=== PATIENT | male | born 1955 | race Caucasian/White ===

== ENCOUNTER 2017-07-11 11:27 | Inpatient (IN) | payer OTHER ==
[2017-07-11] VITALS (11 sets, daily range): BP systolic 107–146; BP diastolic 59–90; PULSE 49–98; RESP 9–18; O2SAT 97–100
[~2017-07-11] VITALS: Ht 175.3 cm; Wt 95.8 kg
[2017-07-11] MEDS: Lactated Ringer's 1,000 ML IV SCH ×3 (05:00→13:43)
[~2017-07-11 11:27] MED LIST: ADAL40PE3 SQ; ASPI-973 PO; BETA60OI3 TP; Bupivacaine Liposome 1.3% 20 mL Inj INFILTRATE ONE; CeFAZolin Inj 2 GM in IV Premix 1 EACH IV ONE; RANI150C4 PO; VITA200C21 PO; vitamin d2
[2017-07-11] MEDS ORDERED: CeFAZolin 2 Gm/50 mL D5W Duplex Bag IV ONE (11:42)
[2017-07-11] MEDS ORDERED: PSYL660P17 PO (12:13)
[2017-07-11] MEDS: Vancomycin Inj 1,500 MG in 0.9% Sodium Chloride 500 ML IV SCH ×3 (12:37→12:50)
[2017-07-11] MEDS ORDERED: fentaNYL-PF 50 mCg/mL 2 mL Inj IVPUSH PRN (13:25)
[2017-07-11] MEDS ORDERED: Lactated Ringer's 500 ML IV PRN (13:25)
[2017-07-11] MEDS ORDERED: Ondansetron 2 mg/mL 2 mL Inj IVPUSH PRN ×2 (13:25→15:45)
[2017-07-11] MEDS ORDERED: Lactated Ringer's 1,000 ML IV SCH (13:25)
[2017-07-11] MEDS ORDERED: MetoCLOpramide 5 mg/mL 2 mL Inj IVPUSH PRN (13:25)
[2017-07-11] MEDS ORDERED: HYDROmorphone 1 mg/mL Inj IVPUSH PRN ×2 (13:25→15:45)
[2017-07-11] MEDS ORDERED: EPHEDrine Sulfate 50 mg/mL Inj IVPUSH PRN (13:25)
[2017-07-11] MEDS ORDERED: Phenylephrine 10,000 mCg/mL Inj IVPUSH PRN (13:25)
[2017-07-11] MEDS ORDERED: Dexamethasone 4 mg/mL Inj IVPUSH PRN (13:25)
--- NOTE | 2017-07-11 13:28 | PCM.HPANE ---
Patient Data Date of Service: Jul 11, 2017 Surgeon Admitting Provider: Attending Provider:Kvng Rice DO Primary Care Physician:Latanya Other Provider:Boom Holly Anesthesia Reason for Visit Right Hip Osteoarthritis Ht/WT & BMI Height (Feet): 5 Height (Inches): 9 Weight (Kilograms): 95.8 Body Mass Index 31.00 Allergies Coded Allergies: etanercept (Verified Allergy, Unknown, reddness legs, 07/11/17) Past Anesthesia History Anesthesia History: Denies:: Abnormal Airway, Anesthesia Reactions, Difficult Intubation, Fam Anesthesia Reaction, Fam Malignant Hypertherm, Malignant Hyperthermia Diabetes History Hx Diabetes?: No MRSA MRSA: No Medications Blood Thinner: Aspirin Hypertension Medication: No Home Meds Incl Beta Ever: No Reported Medications Psyllium Husk (Metamucil)3.4 Gram/5.4 Gram [id number] Gm PO DAILY CONSTIPATION 07/11/17 Calcipotriene/Betamethasone (Taclonex Ointment)60 Gm Oint...g.60 Gm TP PRN skin irritation 06/30/17 Vitamin E Acetate (Vitamin E)200 Unit [id number] Unit PO DAILY 06/30/17 Ranitidine 150 Mg [id number] Mg PO DAILY PRN For Indigestion Ref 0 06/30/17 [vitamin d2] No Conflict Check50,000 Units WEEKLY 06/30/17 Aspirin 81 Mg Hblyvy05 Mg PO DAILY Ref 0 06/30/17 Adalimumab (Humira Psoriasis)40 Mg/0.8 Ml Pen.ij.kit40 Mg SQ a6sfaew 06/30/17 History History of ENT Problems?: No HEENT History: Positive for:: Hearing Problem Denies:: Abnormal Airway Cataracts Difficult Intubation Dysphagia Glaucoma Sinus Problem TMJ Denture Type: None Teeth Condition: Within Normal Limits Hx of Heart Problems?: No Cardiovascular History: Denies:: AICD Abdominal Aortic Aneurism Atrial Fibrillation Edema Heart Murmur Hypertension Irregular Heartbeat Pacemaker Peripheral Vascular Hx of Respiratory Problem?: Yes Respiratory History: Positive for:: Use of C-PAP Machine Denies:: Asthma COPD Emphysema Oxygen Administration Pneumonia Tuberculosis Use of Inhalers / NEBS Hx Neurologic Problems?: No Neurological History: Denies:: CVA Headaches Multiple Sclerosis Parkinson's Disease Seizures TIA Hx of GI Problems?: Yes Hx of Problems?: No Genitourinary History: Denies:: Kidney Stones Urinary Tract Infection Male Hx: Positive for:: Prostate Problems (BPH) Skin History: Positive for:: History Skin Disorders? (psoriasis) Denies:: Pressure Ulcers Hx Musculoskeletal Problems?: Yes Musculoskeletal History: Positive for:: Degenerative Joint Musculoskeletal Trauma (right hip current admission problem) Osteoarthritis (psoriatric arthritis) Denies:: Back Injury Fibromyalgia Joint Replacement Myasthenia Gravis Systemic Lupus Hx of Psycho/Social Problems?: No Psycho Social History: Denies:: Anxiety Hx Depression Hx Surgeries?: Yes (appe, karla, rt testicle) Hx Any Other Health Problems?: Yes Other History: Positive for:: Cancer (melanoma right lower leg x 2 surgeries- being monitored) Denies:: Thyroid Disease History Blood Transfusions: Positive for:: Accept Blood Products? Denies:: Blood Transfusions Hx Diabetes: No Hx Alcohol Use: YesAlcoholic Drinks Per Day: infrequently- holidaysHx Substance Use: NoHave You Smoked inLast 12 mo: No Stop/Bang Treated for Sleep Apnea?: Yes Do You Have a CPAP Machine?: Yes P-Blood Pressure: treated: No B- Body Mass Index > 35 kg/m2: No A- Age over 50: Yes N- Neck Large Circumference: No G- Gender Male: Yes FLORES Category 1: Yes Risk Assessment Category Category 1A: Patient has history of documented sleep apnea, and HAS NOT received any narcotic, sedative or anesthesia administration during this stay. Category 1B: Patient has history of documented sleep apnea, and HAS received any narcotic , sedative or anesthesia administration during this stay Category 2: Patient has SUSPECTED Obstructive Sleep Apnea, and HAS received any narcotic , sedative or anesthesia administration during this stay. Category 3: Patient has SUSPECTED Obstructive Sleep Apnea and HAS NOT received narcotic, sedative or anesthesia administration during this stay. Category 4: Outpatient in Procedural Areas with known sleep apnea or who screen positive for High Risk via the STOP/BANG questionnaire. Exam Exam Vital Signs Vital Signs Date Time Temp Pulse Resp B/P Pulse Ox O2 Delivery O2 Flow Rate FiO2 07/11/17 12:00 CPAP/BIPAP 07/11/17 11:47 36.2 58 15 131/66 99 Room Air General Appearance: Alert, Oriented X3, Cooperative HEENT/AIRWAY: MP 1 (full martin) Lungs: Clear to Auscultation Heart: Exam Unremarkable Meds/Labs/Diagnostics Admission Meds Current Medications Lactated Ringer's 1,000 ml @ 120 mls/hr Q8H20M IV Last administered on t 11:44; Start 07/11/17 at 05:00; Stop 07/11/17 at 13:19; Status DC Vancomycin HCl/ Sodium Chloride (Vancocin Inj/ Normal Saline) 500 ml @ 333.333 mls/hr PREOP IV Last administered on 07/11/17t 12:50; Start 07/11/17 at 12:37; Stop 07/11/17 at 18:00 Plan Impression Patient chart reviewed, patient interviewed and anesthestic plan with risks, benefits, and alternatives discussed, and informed consent obtained. NPO per Anesth. Guidelines: Yes ASA Physical Status: ASA2 Mod Systemic Disease Anesthetic Plan: SAB Bene/Risks/Altern/Consents: Yes HP Complete Prior to Induction: Yes Ruben Lozano MD Jul 11, 2017 13:28
[2017-07-11] MEDS ORDERED: 0.9% Sodium Chloride 100 ML ONE (13:30)
[2017-07-11] MEDS ORDERED: Tranexamic Acid 100 mg/mL 10 mL Inj ONE (13:30)
[2017-07-11] MEDS ORDERED: Bupivacaine Liposome 1.3% 20 mL Inj ONE (13:31)
[2017-07-11] MEDS ORDERED: 0.9% Sodium Chloride 10 mL Inj INFILTRATE ONE (14:30)
[2017-07-11] MEDS ORDERED: Bupivacaine-MPF 0.25%/EPI 30 mL Inj INFILTRATE ONE (14:30)
[2017-07-11] MEDS ORDERED: diphenhydrAMINE 25 mg Capsule PO PRN (15:45)
[2017-07-11] MEDS ORDERED: Polyethylene Glycol (PEG) 17 Gm Powder PO PRN (15:45)
[2017-07-11] MEDS ORDERED: Acetaminophen IV 1,000 MG in IV Premix 1 EACH IV ONE (15:45)
[2017-07-11] MEDS ORDERED: Magnesium Hydroxide 10 mL Oral Concentration PO PRN (15:45)
--- NOTE | 2017-07-11 16:35 | NUR ---
Arrived on Unit Patient arrived on floor from PACU on bed in stable condition. VSS. Dressing CDI. Denies pain and nausea at this time. Patient orientated to call light, bed, how to order food, and the plan for PT to work with the patient tomorrow morning. at bedside. Call light and tray table within reach. Will continue to monitor patient hourly.
--- NOTE | 2017-07-11 16:56 | DRSVH ---
PROCEDURE: X-RAY PELVIS W/LAT HIP (RT) ([id number]) INDICATIONS: post op TECHNIQUE: AP pelvis and lateral view of the right hip acquired. COMPARISON: [facility], , XR PELVIS W BILATERAL HIPS 5VW, 03/29/2017, 14:00. FINDINGS: Bones: Patient is status post right hip arthroplasty, with hardware components in expected positions . The hip joint appears congruent. The visualized bony structures appear intact. Soft tissues: Overlying postoperative changes are noted. No suspicious soft tissue densities. IMPRESSION: Normal postoperative examination. Dictated by: Fredi Verdin M.D. on 07/11/2017 at 16:53 Approved by: Fredi Verdin M.D. on 07/11/2017 at 16:53
--- NOTE | 2017-07-11 17:00 | OP ---
[address] [address] OPERATIVE REPORT PATIENT: MIMI STOVER : 1955 MR#: [id number] ADMIT: 07/11/2017 JOB ID: [id number] DATE OF SURGERY: 07/11/2017 PREOPERATIVE DIAGNOSIS(ES): Right hip degenerative joint disease. POSTOPERATIVE DIAGNOSIS(ES): Right hip degenerative joint disease. PROCEDURE: Right total hip arthroplasty. SURGEON: Kvng Rice MD PLASTIC EXTRUDING MACHINE OPERATOR: Caitie Lujan PA-C ANESTHESIA: Spinal. INDICATIONS: The patient is a 62-year-old male with right hip severe degenerative arthritis secondary to psoriatic arthritis who had failed conservative measures and wished to proceed with a total hip arthroplasty. We discussed the risks, benefits, and possible complications of surgery including, but not limited to, injury to nerves and vessels, infection, bleeding, incomplete relief of symptoms, stiffness, need for additional procedures, dislocation, and blood clots. The patient had good understanding. All questions were answered and he wished to proceed. A surgical first assistant was required for the successful completion of the procedure. PROCEDURE IN DETAIL: The patient is brought to the operating room. He was given a preoperative antibiotic and 1 g TXA preoperatively. He was placed into the lateral decubitus position. The right hip was sterilely prepped and draped. An incision was made centered over the greater trochanter in line with the femur. Dissection was carefully carried through the subcutaneous tissue. Electrocautery was used for hemostasis. A split was made in the iliotibial band in line with the skin incision and the Charnley retractor was then placed. A split was then made in the gluteus medius between the junction of the anterior 1/3 and the posterior 2/3, and Hohmann retractors were placed on either side of the femoral neck. An anterior sleeve of tissue was released off of the trochanter, leaving a cuff of tissue for repair. This was taken to a point just distal to vastus tubercle. A small triangular portion of capsule was removed. His hip was quite tight and some additional capsule needed to be released in order to facilitate dislocation. The hip was then dislocated and a provisional neck cut was made about a fingerbreadth above the level of the lesser trochanter. The head was removed and the femur was prepared, beginning with a box osteotome. This was sequentially broached up to a size 5, which had excellent fit and fill. A calcar planer was used to smooth the top of the femur. Next, attention was directed towards the acetabulum. Anterior and posterior acetabular retractors placed carefully onto bone and the pulvinar and labrum were removed. The acetabulum was reamed sequentially up to a 59. The cup trialed did not fit well and I medialized additionally with the 59 to the floor of the acetabulum, which got us into good bleeding bone, and I did not feel that I should go up any higher as I was concerned about the thickness of his anterior and posterior guzman. Therefore a DePuy Bairoil 60 three-hole cup was chosen, implanted, and had fair fixation in the bone. I augmented this with two additional screws superiorly at the dome, both of which had excellent fixation. We then trialed the hip with a 36 neutral liner, and the 36+1.5 as well as +5 heads, and elected to go with the DePuy Bairoil 36 x 60 cup and DePuy Tri-Lock 5 stem with a 36+5 ceramic head. These components were impacted into position. The hip was located and had excellent range of motion and great stability. The wound was then irrigated, an additional gram of TXA was given, and the capsule was then closed with #5 Ethibond. The remainder of the gluteus medius was repaired with #5 Ethibond and #1 Surgilon. The iliotibial band was repaired with #1 Surgilon and 0-Vicryl. The subcu was closed with 2-0 Vicryl and the skin was closed with 3-0 V-Jaylen suture. To make sure, Exparel, saline, and Marcaine was added as an adjunct local anesthetic. Sterile dressings were applied. Patient tolerated the procedure well. BLOOD LOSS: 100 mL POSTOPERATIVE PROTOCOL: Will have the patient weightbear to tolerance, use a walker for ambulation, avoid any active abduction for six weeks postoperatively. Will plan to use aspirin for DVT prophylaxis.
--- NOTE | 2017-07-11 17:22 | PCM.ANEP1 ---
Post Anesthesia PACU Phase 1 Assessment Vital Signs Vital Signs Date Time Temp Pulse Resp B/P Pulse Ox O2 Delivery O2 Flow Rate FiO2 07/11/17 16:44 CPAP/BIPAP 07/11/17 16:41 36.6 54 16 119/76 99 Room Air 07/11/17 16:31 15 100 07/11/17 16:28 51 15 113/59 100 Room Air 07/11/17 16:14 36.5 49 10 111/68 99 Room Air 07/11/17 16:09 57 11 107/62 100 Room Air 07/11/17 16:04 52 9 111/63 100 Room Air 07/11/17 16:03 14 100 07/11/17 15:59 36.4 56 18 110/76 100 Room Air 07/11/17 12:00 CPAP/BIPAP 07/11/17 11:47 36.2 58 15 131/66 99 Room Air Anesthetic Administered: SAB Level of Alertness: Awake, talking BRUNSON's with Equal Strength: Yes Pain: No Nausea or Vomiting: No CV Function & Hydration Stable: Yes Airway Device: Oxygen Delivery: Room Air Lungs: Clear to Auscultation Dermatome Level: L1,2 (Groin) PACU Phase 2 Assessment Patient Instructions Provided: N/A Ruben Lozano MD Jul 11, 2017 17:22
[2017-07-11] MEDS: hydrOXYzine Pamoate 25 mg Capsule PO PRN ×2 (17:55→23:19)
[2017-07-11] MEDS: HYDROcodone-APAP 5-325 mg Tablet PO PRN ×2 (17:55→23:20)
[2017-07-11] MEDS: Sodium Chloride LOK Flush 10 mL Syringe IV SCH (17:56)
[2017-07-11] MEDS: 0.9% Sodium Chloride 1,000 ML IV SCH (17:56)
[2017-07-11] MEDS: CeFAZolin Inj 2 GM in IV Premix 1 EACH IV SCH (19:58)
[2017-07-11] MEDS: Senna-Docusate 8.6-50 mg Tablet PO SCH (20:10)
[2017-07-12 00:11] VITALS: BP 127/71; PULSE 67; RESP 18; O2SAT 97
[2017-07-12] MEDS: Sodium Chloride LOK Flush 10 mL Syringe IV SCH ×3 (00:30→15:49)
[2017-07-12] MEDS: 0.9% Sodium Chloride 1,000 ML IV SCH ×3 (01:42→21:42)
--- NOTE | 2017-07-12 02:22 | NUR ---
Bladder retention/Pain On initial assessment, patient complained of severe abdominal pain and problem with urinating into the urinal. Encouraged patient to deep breathe and relax to help with urination.Ketorolac IVP administered. Bladder scan indicated 705ml retention. Right before pulliam was to be inserted, patient urinated 300ml. Abdominal pain subsided. VSS. Call light within reach. Hourly rounding continues.
[2017-07-12] MEDS: CeFAZolin Inj 2 GM in IV Premix 1 EACH IV SCH (04:04)
[2017-07-12 05:11] VITALS: BP 117/67; PULSE 70; RESP 18; O2SAT 98
[2017-07-12 06:03] LABS: BASOPHILS % (AUTO) 0.1 % (0-3); EOSINOPHILS % (AUTO) 0.6 % (0-5); MONOCYTES % (AUTO) 11.5 % (4-12); Mean Corpuscular Hemoglobin 29.3 pg (27.0-35.0); Mean Corpuscular Volume 87.9 fL (81-100); NEUTROPHILS % (AUTO) 66.3 % (40-74); Platelet Count 215 bil/L (150-400)
[2017-07-12] MEDS: Senna-Docusate 8.6-50 mg Tablet PO SCH ×2 (07:56→21:45)
[2017-07-12] MEDS: hydrOXYzine Pamoate 25 mg Capsule PO PRN ×3 (07:56→18:20)
[2017-07-12] MEDS: HYDROcodone-APAP 5-325 mg Tablet PO PRN ×3 (07:57→22:56)
[2017-07-12] MEDS ORDERED: VITAMIN E ACETATE 200 UNIT PO SCH (08:30)
[2017-07-12 09:03] VITALS: BP 131/74; PULSE 85; RESP 18; O2SAT 98
--- NOTE | 2017-07-12 09:36 | PCM.PNORTH ---
Subjective Date of Service: Jul 12, 2017 Visit Information: Reason for Visit Right Hip Osteoarthritis Surgery/Surgery Date RIGHT TOTAL HIP 07/11/17 Post-Op Day # 1 Date of Admission: Jul 11, 2017 at 16:42 Hospital Day # Subjective Patient complains of mild incisional pain. He normally takes Metamucil every morning. He will like to have a bowel movement prior to discharge. He has done quite well with physical therapy so far this morning. Postop General: No Shortness of Breath, No Chest Pain, Good Appetite Pain Management: PO, IV Push Objective Exam Objective Patient is seen sitting up in bed Vital Signs and I/O Vital Sign - Last Date Time Temp Pulse Resp B/P Pulse Ox O2 Delivery O2 Flow Rate FiO2 07/12/17 09:03 36.7 85 18 131/74 98 07/12/17 05:11 CPAP Intake and Output 07/11/17 07/11/17 07/12/17 Cumulative From/Thru 15:00 23:00 07:00 06/30/17 09:34 - 07/12/17 05:59 Intake Total 1660 ml 500 ml 1977 ml 4137 ml Output Total 100 ml 2165 ml 2265 ml Balance 1660 ml 400 ml -188 ml 1872 ml Intake Oral 400 ml 920 ml 1320 ml IV Total 1660 ml 100 ml 1057 ml 2817 ml Output Urine Total 2165 ml 2165 ml Estimated Blood Loss 100 ml 100 ml # Bowel Movements 0 0 Lab & Micro Results Laboratory Tests Test 07/12/17 05:11 White Blood Count 8.8th/mm3 (3.8-10.1) Red Blood Count 4.20mil/mm3 (4.40-5.80) Hemoglobin 12.3g/dL (13.8-17.2) Hematocrit 36.9% (41.0-50.0) Mean Corpuscular Volume 87.9fL (81-100) Mean Corpuscular Hemoglobin 29.3pg (27.0-35.0) Mean Corpuscular Hemoglobin Concent 33.3% (32.0-37.0) Red Cell Distribution Width 12.4% (12.3-15.4) Platelet Count 215bil/L (150-400) Neutrophils (%) (Auto) 66.3% (40-74) Lymphocytes (%) (Auto) 21.0% (14-46) Monocytes (%) (Auto) 11.5% (4-12) Eosinophils (%) (Auto) 0.6% (0-5) Basophils (%) (Auto) 0.1% (0-3) Sodium Level 144mEq/L (134-144) Potassium Level 3.9mEq/L (3.5-5.2) Chloride Level 107mEq/L (97-108) Carbon Dioxide Level 24mmol/L (18-29) Blood Urea Nitrogen 11mg/dL (8-27) Creatinine 1.03mg/dL (0.76-1.27) Estimat Glomerular Filtration Rate 78mL/min (>59) Glucose Level 109mg/dL (60-99) Calcium Level 8.2mg/dL (8.5-10.1) Result Diagram: 07/12/1751007/12/17510 General Appearance: Alert, Oriented X3, Cooperative, No Acute Distress Extremities: Distal Pulses Palpable, No Compartment Syndrom Noted, Thigh & Calf Soft/Nontender Postop Sensory Motor: Distal Motor Intact, Distal Sensation Intact, NVI Distally SURGICAL WOUND : Wound Location/Description Surgical dressing is clean, dry and intact Incision General Appearance: No Direct Observation Activity: Activity per PT Catheters: None Assessment & Plan Impression POD #1 status post right total hip arthroplasty Problems: Plan Weightbearing: Weightbearing as tolerated with front-wheeled walker or crutches DVT prophylaxis: aspirin 325 mg twice a day 6 weeks Physical therapy for transfers, progressive ambulation, therapeutic exercise Wound care: Change dressing on postop day 2 Discharge plan: Discharge home today or tomorrow. If he does well with PT this afternoon and has a BM, he may go home this afternoon. Follow-up plan: In 2 weeks at [facility] with EDGAR for wound check and at [address] Rice with x-rays Pain Management: [place], Toradol, Vistaril VTE Prophylaxis: SCDs, Other (aspirin 325 mg twice a day) Resuscitation Status: CPR: Attempt Resuscitation [place]ontCaitie Baker PA-C Jul 12, 2017 09:36
--- NOTE | 2017-07-12 09:38 | NUR ---
Social Work: Initial Assessment Data: See initial assessment. Patient is a 62 year old male who was admitted on 07/11/17 for right hip osteoarthritis per H&P. Patient's insurance is [employer] and patient has no PCP listed at this time. EMR reviewed. SW met with patient to discuss discharge planning. SW role explained. Patient states that he resides with his in a one story home located in [place]. Patient considers his and his sister to be his main sources of support. Patient confirms that he is I at baseline with no DME. Patient confirms that he is able to perform all ADLs and care needs. Patient denies having a hx of home health services or SNF. Patient denies having [facility] care insurance or VA benefits. Patient denies have a DPOA or AD and has declined SW offer for AD resources at this time. Upon discharge, patient will likely return home with spouse. Transportation will be provided by or patient's sister. SW provided patient with a discharge planning checklist booklet and encouraged to call with any questions or concerns. Phone number provided. SW will continue to follow. Assessment: Patient who is from home with spouse. Plan: Patient will discharge once medically stable. Patient will likely discharge home with no needs. Transportation will be provided by family member. SW will continue to follow for needs. SAV Estevez Addendum: 07/12/17 at 0946 by SANNA MAYFIELD SS Amended: Links added.
--- NOTE | 2017-07-12 10:39 | NUR ---
Pain/Ambulation Pt has had well managed pain w/ norco and toradol, premed of norco before PT and pt did very well. As a PO day 1 this patient is doing very well.
--- NOTE | 2017-07-12 11:04 | NUR ---
Evaluation completed. Please go to "Notes" then click on "Assessments and Notes" (bottom left corner of screen). Then select appropriate discipline tab on top of screen.
[2017-07-12 12:48] VITALS: BP 124/76; PULSE 88; RESP 18; O2SAT 98
--- NOTE | 2017-07-12 17:04 | NUR ---
Social Work- Update Patient is admitted through the [facility] Choice program. Since this program has provided specific authorization for this surgery, all medications affiliated with this surgery are paid for by the out of pocket and then submitted to [facility] for reimbursement rather than going through [facility] (pt's PCP is Dr. Gutierrez). Pt is aware of this and agreeable. No VA medication assistance is necessary in this case. If there are DME needs or other concerns related to pt's discharge planning, Diana through [facility] can be contacted at [phone] to assist. SAV Unger
[2017-07-12 20:19] VITALS: BP 125/77; PULSE 103; RESP 18; O2SAT 94
[2017-07-13] MEDS: HYDROcodone-APAP 5-325 mg Tablet PO PRN ×3 (03:00→12:55)
[2017-07-13] MEDS: Sodium Chloride LOK Flush 10 mL Syringe IV SCH ×2 (03:02→08:51)
--- NOTE | 2017-07-13 04:13 | NUR ---
Ambulation Patient up independent in room w/FWW, standby assist. Patient expressed concern about not having a BM since being in hospital. Colace and Senna given this shift. Patient passing gas. Patient's temperature was elevated early in shift but has since come down after receiving Tylenol. Vitals stable. Pain well managed. Patient using CPAP at night. Care continues.
[2017-07-13 04:15] VITALS: BP 113/71; PULSE 68; RESP 18; O2SAT 96
[2017-07-13 05:27] LABS: BASOPHILS % (AUTO) 0.2 % (0-3); EOSINOPHILS % (AUTO) 1.9 % (0-5); MONOCYTES % (AUTO) 12.6 % (4-12); Mean Corpuscular Hemoglobin 29.5 pg (27.0-35.0); Mean Corpuscular Volume 88.4 fL (81-100); NEUTROPHILS % (AUTO) 59.7 % (40-74); Platelet Count 207 bil/L (150-400)
--- NOTE | 2017-07-13 07:40 | PCM.PNORTH ---
Subjective Date of Service: Jul 13, 2017 Visit Information: Reason for Visit Right Hip Osteoarthritis Surgery/Surgery Date RIGHT TOTAL HIP 07/11/17 Post-Op Day # 2 Date of Admission: Jul 11, 2017 at 16:42 Hospital Day # Subjective Patient reports he is having decreased pain at the hip. He is progressing well with physical therapy and walked 100 feet yesterday. He is independent with transfers. He has not yet had a bowel movement. He is passing flatus. Postop General: No Shortness of Breath, No Chest Pain, Good Appetite Pain Management: PO, IV Push Objective Exam Objective Patient stood at bedside for dressing change Vital Signs and I/O Vital Sign - Last Date Time Temp Pulse Resp B/P Pulse Ox O2 Delivery O2 Flow Rate FiO2 07/13/17 04:15 36.7 68 18 113/71 96 CPAP Intake and Output 07/12/17 07/12/17 07/13/17 Cumulative From/Thru 15:00 23:00 07:00 06/30/17 09:34 - 07/13/17 06:03 Intake Total 1000 ml 800 ml 5937 ml Output Total 1400 ml 3665 ml Balance -400 ml 800 ml 2272 ml Intake Oral 1000 ml 800 ml 3120 ml IV Total 2817 ml Output Urine Total 1400 ml 3565 ml Estimated Blood Loss 100 ml # Voids 1 1 # Bowel Movements 0 0 0 Lab & Micro Results Laboratory Tests Test 07/13/17 04:52 White Blood Count 8.8th/mm3 (3.8-10.1) Red Blood Count 4.24mil/mm3 (4.40-5.80) Hemoglobin 12.5g/dL (13.8-17.2) Hematocrit 37.5% (41.0-50.0) Mean Corpuscular Volume 88.4fL (81-100) Mean Corpuscular Hemoglobin 29.5pg (27.0-35.0) Mean Corpuscular Hemoglobin Concent 33.3% (32.0-37.0) Red Cell Distribution Width 12.7% (12.3-15.4) Platelet Count 207bil/L (150-400) Neutrophils (%) (Auto) 59.7% (40-74) Lymphocytes (%) (Auto) 25.0% (14-46) Monocytes (%) (Auto) 12.6% (4-12) Eosinophils (%) (Auto) 1.9% (0-5) Basophils (%) (Auto) 0.2% (0-3) Result Diagram: 07/13/17 0452 07/12/17 0511 General Appearance: Alert, Oriented X3, Cooperative, No Acute Distress Extremities: Distal Pulses Palpable, No Compartment Syndrom Noted, Thigh & Calf Soft/Nontender Postop Sensory Motor: Distal Motor Intact, Distal Sensation Intact, NVI Distally SURGICAL WOUND : Wound Location/Description Right hip: Surgical dressing is removed. The wound is well approximated and Steri-Strips are in place. There is no erythema or drainage present. The wound is cleansed with hydrogen peroxide. Wound is dressed with Silverlon and Island dressing. Activity: Activity per PT Catheters: None Assessment & Plan Impression POD #2 status post right total hip arthroplasty Problems: Plan Weightbearing: Weightbearing as tolerated with front-wheeled walker or crutches DVT prophylaxis: aspirin 325 mg twice a day 6 weeks Physical therapy for transfers, progressive ambulation, therapeutic exercise Wound care: Dressing is changed today with Silverlon and [place] dressing Discharge plan: Discharge home today after patient has BM. Discharge instructions were reviewed with patient Follow-up plan: In 2 weeks at [facility] with EDGAR for wound check and at [address] Rice with x-rays Pain Management: [place], tramadol, vistaril VTE Prophylaxis: SCDs, Other (aspirin 325 mg twice a day) Resuscitation Status: CPR: Attempt Resuscitation Caitie Lujan PA-C Jul 13, 2017 07:40
[2017-07-13] MEDS: 0.9% Sodium Chloride 1,000 ML IV SCH (07:42)
[2017-07-13] MEDS: Senna-Docusate 8.6-50 mg Tablet PO SCH (08:52)
[2017-07-13 09:05] VITALS: BP 128/79; PULSE 80; RESP 18; O2SAT 97
--- NOTE | 2017-07-13 09:51 | PCM.DIORTH ---
Ortho Discharge Instruction Date of Service: Jul 13, 2017 Dates of Hospitalization Date of Hospital Admission Jul 11, 2017 at 16:42 Providers Admitting Physician: Kvng Rice DO Primary Care Physician: Latanya Attending Physician: Kvng Rice DO Diet Discharge Diet: No restrictions Activity Discharge Activity-General: Try not to overdue, Be up and about, Balance rest and activity, Elevate & ice extremity Right Lower Extremity: Weight Bearing as tolerated Discharge Assist Device: Front Wheeled Walker Dressing and Incisional Care Discharge Dressing Care: Keep dressing clean, dry & intact Discharge Hygiene: May shower (see instructions below), DO NOT soak incision under water (for 2 weeks), NO bathtub, hot tub or whirlpool (for 2 weeks) Additional Instructions Discharge Instructions Weightbearing: Weightbearing as tolerated with wheeled walker DVT prophylaxis: aspirin 325 mg twice a day 6 weeks Hip precaution positions to prevent dislocation: No flexing forward past 90, no crossing the legs at the knee, no active abduction for 6 weeks after surgery Wound care: Change dressing every 2-3 days Wear the compression stockings for 4 weeks on the right leg and 2 weeks on the left leg Increase your walking a little more each day On Monday, you may shower if the wound has no drainage present. Wound may be uncovered to shower. Let soap and water run over the wound, pat dry and apply a new dressing. We used a silver dressing for 1 week. Moisten the silver dressing with the syringe of saline, and handle it only by the edges, then apply a new adhesive bandage. Leave the steri strips in place until your first office visit. We will remove them at that time. Follow Up Plan Follow Up Plan Follow-up plan: In 2 weeks at [facility] with EDGAR for wound check and at [address] Rice with x-rays Call your provider for: Fever, Chills, Shortness of breath, Vomitting, Drainage at incision (that is increasing), Wound redness (that is spreading), Increasing pain (for no reason) Caitie Lujan PA-C Jul 13, 2017 09:51
[2017-07-13] MEDS ORDERED: HYDR-4003 PO (09:57)
[2017-07-13] MEDS ORDERED: Aspirin-Expunged Drug, Do Not Renew! PO (09:57)
[2017-07-13] MEDS ORDERED: TRAM-14 PO (09:57)
[2017-07-13] MEDS ORDERED: HYDR-3797 PO (09:57)
--- NOTE | 2017-07-13 10:01 | PCM.DC.ORT ---
Discharge Summary Date of Service: Jul 13, 2017 Date of Hospital Admission: Jul 11, 2017 at 16:42 Date of Surgery: Jul 11, 2017 Date of Discharge: Jul 14, 2017 Reason for Hospitalization: Right hip arthritis Procedures Performed: Right total hip arthroplasty Hospital Course: The patient was admitted to the hospital on 07/11/2017 and underwent the above procedure. Antibiotic prophylaxis consisting of Ancef and vancomycin. The surgeon was Dr. Rice. Patient tolerated the procedure well and was transferred to recovery room in stable condition. Patient had physical therapy to work on ambulation and transfers. Weightbearing as tolerated with walker. Pain was managed with Dilaudid, Percocet, Vistaril, Toradol. DVT prophylaxis: Aspirin 325 mg twice a day. The patient had previous issues with constipation at his last hospitalization. He was passing flatus each day in the hospital stay. Patient progressed well with physical therapy. He had a bowel movement on POD-2 and was discharged home. Follow-up: at [facility] 2 weeks postop for wound check and at [address] Rice with x-ray Diagnosis at Time of Discharge Status post right total hip arthroplasty Problems: Disposition: Discharged home in stable condition Additional Information Follow-up and [facility] in 2 weeks with PA for wound check and at [address] Rice with x-ray Discharge Instructions: Discharge Activity-General: Try not to overdue, Be up and about, Balance rest and activity, Elevate & ice extremity Right Lower Extremity: Weight Bearing as tolerated Discharge Assist Device: Front Wheeled Walker Discharge Dressing Care: Keep dressing clean, dry & intact Discharge Hygiene: May shower (see instructions below), DO NOT soak incision under water (for 2 weeks), NO bathtub, hot tub or whirlpool (for 2 weeks) Weightbearing: Weightbearing as tolerated with wheeled walker DVT prophylaxis: aspirin 325 mg twice a day 6 weeks Hip precaution positions to prevent dislocation: No flexing forward past 90, no crossing the legs at the knee, no active abduction for 6 weeks after surgery Wound care: Change dressing every 2-3 days Wear the compression stockings for 4 weeks on the right leg and 2 weeks on the left leg Increase your walking a little more each day On Monday, you may shower if the wound has no drainage present. Wound may be uncovered to shower. Let soap and water run over the wound, pat dry and apply a new dressing. We used a silver dressing for 1 week. Moisten the silver dressing with the syringe of saline, and handle it only by the edges, then apply a new adhesive bandage. Leave the steri strips in place until your first office visit. We will remove them at that time. ([vitamin d2]) 50,000 UNITS WEEKLY ([Aspirin-Expunged Drug, Do Not Renew!]) 325 MG TABLET 325 MG PO BID for 6 weeks after surgery Adalimumab (Humira Psoriasis) 40 Mg/0.8 Ml Pen.ij.kit 40 MG SQ [id number] Calcipotriene/Betamethasone (Taclonex Ointment) 60 Gm Oint...g. 60 GM TP PRN skin irritation Hydrocodone-Acetaminophen 5-325 mg (Hydrocodone-Acetaminophen 5-325 mg) 1 Each Tablet 1-2 TABLET PO Q4H PRN PRN For Moderate Pain Max 8 per day Hydroxyzine Pamoate (HydrOXYzine Pamoate) 25 Mg Capsule 25 MG PO Q6H PRN PRN For Spasm and/or Restlessness Psyllium Husk (Metamucil) 3.4 Gram/5.4 Gram Powder 660 GM PO DAILY Ranitidine (Ranitidine) 150 Mg Capsule 150 MG PO DAILY PRN PRN For Indigestion Tramadol (Ultram) 50 Mg Tablet 50 MG PO Q6H PRN PRN For Mild Pain Vitamin E Acetate (Vitamin E) 200 Unit Capsule 200 UNIT PO DAILY Caitie Lujan PA-C Jul 13, 2017 10:01
[2017-07-13 15:37] VITALS: BP 131/74; PULSE 80; RESP 18; O2SAT 94
--- NOTE | 2017-07-13 15:59 | NUR ---
Discharge Patient DC to home with family. All DC education including follow up appts given to patient. Patient and family verbalize understanding of all. IV accessDC'd intact with no s/s of infection.
--- NOTE | 2017-07-13 17:39 | NUR ---
Social Work: Discharge/Multidisciplinary Rounds D: EMR reviewed. Pt is on day 2 of hospitalization. Pt discussed in multidisciplinary rounds and is medically stable for discharge home today. No SW needs identified, no MD orders received. A: Pt who is independent at baseline and has capacity for self-care. P: Patient to discharged home today with family via POV. No SW needs identified, no MD orders received. SAV Kebede
== END 2017-07-13 15:50 | disposition home or self-care (01) | DRG 470 ==
LOC: SAS 11:27 → OSC 16:42
PROVIDERS: ADMIT Orthopaedic Surgery; ATTEND Orthopaedic Surgery
PROC: 0SR904A Replacement of Right Hip Joint with Ceramic on Polyethylene Synthetic Substitute, Uncemented, Open Approach (ICD-10-PCS; principal; 2017-07-11 14:00)
DX: M16.11 Unilateral primary osteoarthritis, right hip (principal); L40.50 Arthropathic psoriasis, unspecified